=== PATIENT | female | born 1975 | race Two or more races ===

== ENCOUNTER 2016-09-02 05:45 | Day surgery (SDC) | payer BC ==
[2016-09-01 09:27] VITALS: BMI 27.1
--- NOTE | 2016-09-01 22:00 | PREOPHP ---
DATE OF ADMISSION: 09/02/2016 REASON FOR ADMISSION: The patient is to be admitted tomorrow, 09/02/2016, for hysteroscopy, myomect mady, and endometrial ablation. CHIEF COMPLAINT: Heavy vaginal bleeding. HISTORY OF PRESENT ILLNESS: Ms. Stephenson is a 40-year-old female, 3, para 3, who has been exp eriencing extremely heavy vaginal bleeding. Her last menstrual period was 08/19/2016. The bleeding was complicated by clots and flooding of her linens and clothing. She was found to have 2 small fi broids, one with submucosal extension. She is brought in for hysteroscopic myomectomy and endometri al ablation. The alternatives to this procedure, the benefits from it, the risks and possible compl ications, including heavy bleeding, perforation, and infection were discussed with the patient in de tail. She was allowed to ask questions. All her questions were answered to her satisfaction. She signed the appropriate surgical informed consent. PAST MEDICAL HISTORY: The patient denies any medical problems including diabetes, hypertension, car diovascular disease, renal disease, liver disease, thyroid disease, or neurological problems. ALLERGIES: NO KNOWN ALLERGIES. OBSTETRICAL HISTORY: She had 3 pregnancies and 3 normal deliveries. She also had a tubal ligation in the past. FAMILY HISTORY: Noncontributory. REVIEW OF SYSTEMS: A 12-point review of systems is noncontributory. PHYSICAL EXAMINATION: GENERAL: Well-developed and nourished, in no distress, alert and oriented x3 with a height 5 feet a nd weight of 135 pounds. VITAL SIGNS: Showed temperature to be 98, blood pressure 118/62, respirations 16 per minute, the pu lse is 72 per minute regular. HEENT: Within normal limits. Pupils are PERRLA. NECK: Supple. The thyroid is nonpalpable. Lymph nodes are not palpable. BREASTS: Show no masses or lumps. LUNGS: Clear to percussion and auscultation. HEART: Revealed normal sinus rhythm without a murmur. ABDOMEN: Soft. No organomegaly or hernias. PELVIC: Showed the vagina is normal. The cervix is normal without lesions. Bimanual exam: The ut erus is slightly irregular, firm in the midline. There are no adnexal masses present. LOWER EXTREMITIES: Within normal limits. NEUROLOGIC: Also normal. IMPRESSION: 1. Excessive vaginal bleeding due to fibroids. 2. Small submucosal fibroids present. PLAN: Hysteroscopic myomectomy and thermal ablation of the endometrium under general anesthesia. Dictated By: QUAN ADAMS/SRI Conf#: [id number] DID#: [id number]
[~2016-09-02] VITALS: Ht 154.9 cm; Wt 62.4 kg
[2016-09-02] VITALS (13 sets, daily range): BP systolic 87–131; BP diastolic 44–75; PULSE 50–66; RESP 9–18; Ht 154.9 cm; Wt 62.4 kg
[2016-09-02] MEDS ORDERED: FENTAnyl 50 MCG/ML VIAL ONE (07:24)
[2016-09-02] MEDS ORDERED: MIDAZOLAM 1 MG/ML 2 ML INJ ONE (07:24)
[2016-09-02] MEDS ORDERED: LIDOCAINE 2% (SDV) 5 ML INJ ONE (07:24)
[2016-09-02] MEDS ORDERED: PROPOFOL 20 ML ONE (07:24)
[2016-09-02] MEDS ORDERED: VASOPRESSIN 20 UNITS INJ ONE (07:28)
[2016-09-02] MEDS ORDERED: ONDANSETRON 4 MG INJ ONE (07:47)
[2016-09-02] MEDS ORDERED: DEXAMETHASONE 4 MG/ML 1 ML INJ ONE (07:48)
[2016-09-02] MEDS ORDERED: CEFAZOLIN 1 GM INJ ONE (07:51)
[2016-09-02] MEDS ORDERED: ACETAMINOPHEN 1000MG/100ML IV 100 ML ONE (07:55)
[2016-09-02] MEDS ORDERED: ONDANSETRON 4 MG INJ IV PRN ×2 (08:00→14:00)
[2016-09-02] MEDS ORDERED: DIPHENHYDRAMINE 50 MG INJ IV PRN (08:00)
[2016-09-02] MEDS ORDERED: MEPERIDINE 25 MG INJ IV PRN (08:00)
[2016-09-02] MEDS ORDERED: FENTAnyl 50 MCG/ML VIAL IV PRN (08:00)
[2016-09-02] MEDS ORDERED: KETOROLAC 30 MG INJ IV ONE (08:00)
[2016-09-02] MEDS ORDERED: PROCHLORPERAZINE 10 MG INJ IV PRN (08:00)
[2016-09-02] MEDS ORDERED: METOCLOPRAMIDE 10 MG INJ IV PRN (08:00)
[2016-09-02] MEDS ORDERED: HYDROmorphONE (0.2 MG/ML) 10ML SYG IV PRN ×2 (08:00)
[2016-09-02] MEDS ORDERED: EPHEDrine SULFATE 50 MG/5 ML SYG ONE (08:16)
[2016-09-02] MEDS ORDERED: KETOROLAC 30 MG INJ ONE (08:26)
[2016-09-02] MEDS ORDERED: LACTATED RINGER'S 1,000 ML IV SCH (08:41)
--- NOTE | 2016-09-02 08:45 | PD.PPDC ---
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
[2016-09-02] MEDS ORDERED: oxyCODONE 5 MG TAB PO PRN (09:30)
--- NOTE | 2016-09-02 11:11 | OPR ---
DATE OF OPERATION: 09/02/2016 PREOPERATIVE DIAGNOSES: 1. Excessive vaginal bleeding. 2. Urine fibroids. POSTOPERATIVE DIAGNOSES 1. Excessive vaginal bleeding. 2. Uterine fibroids. PROCEDURE PERFORMED: Hysteroscopic endometrial ablation under general anesthesia. SURGEON: Quan Bonilla MD. ANESTHESIOLOGIST: ESTIMATED BLOOD LOSS: Negligible. SPECIMENS: None. COMPLICATIONS: None. PROCEDURE AND FINDINGS: With the patient under general anesthesia, laid on the table in the dorsal lithotomy position. Her lower abdomen, thighs, perineum and vagina were prepped with Betadine and t hen after 3 minutes draped in the usual sterile fashion for this procedure. A weighted posterior re tractor was applied, anterior lip of the cervix grasped with a single-tooth tenaculum. Simple hyste roscopy was done to assess the uterine cavity. The uterine cavity was normal except for a small fib roid in the posterior wall, maybe of 1 cm, right at the surface of the endometrium. The rest of the cavity was normal. This was judged to be treatable with endometrial thermal ablation and the proce dure was then started. The first hysteroscope was removed and the hysteroscope thermal ablator fatemeh ce was inserted. Ten-minute thermal ablation was done under direct vision. Pictures were taken for documentation. The procedure was well tolerated by the patient. There was practically no blood lo ss. All the instruments were then removed from the patient's vagina. Count of sponges, needles and instruments was correct at this point. The patient withstood the procedure well and was taken to recovery room with all vital signs stable. Dictated By: QUAN ADAMS/SRI Conf#: [id number] DID#: [id number]
[2016-09-02] MEDS ORDERED: ACETAMINOPHEN 325 MG TAB PO PRN (14:00)
[2016-09-02] MEDS ORDERED: morphine 2 MG INJ IV PRN (14:00)
[2016-09-02] MEDS ORDERED: IBUPROFEN 600 MG TAB PO PRN (14:00)
[2016-09-02] MEDS ORDERED: OXYCODONE/ACETAMINOPHEN (5/325) TAB PO PRN ×2 (14:00)
== END 2016-09-02 10:38 | disposition home or self-care (01) ==
LOC: SDS 05:45
PROVIDERS: ATTEND Specialist
DX: D25.0 Submucous leiomyoma of uterus (principal)
CPT/HCPCS: 84703; 86850; 86900; 86901; J0131; J0690; J1100; J1170; J1885; J2250; J2405; J2765; J3010